=== PATIENT | female | born 1980 | race Caucasian/White ===

== ENCOUNTER → 2018-11-28 | Outpatient (CLI) | payer BC | LOC: COL.RAD 08:43 | DX: M25.511 Pain in right shoulder (principal); R29.898 Other symptoms and signs involving the musculoskeletal system | CPT/HCPCS: A9585; Q9967 ==

== ENCOUNTER → 2019-06-08 | Outpatient (CLI) | payer BC | LOC: COL.RAD 07:46 | DX: G43.909 Migraine, unspecified, not intractable, without status migrainosus (principal); M25.511 Pain in right shoulder | CPT/HCPCS: A9585 ==